=== PATIENT | female | born 1940 | race Caucasian/White ===

== ENCOUNTER 2023-10-07 19:31 | Observation (INO) ==
[2023-10-07 22:27] LABS: ABS Basophils 0.1 10^3/uL (0.0-0.1); ABS Eosinophils 0.1 10^3/uL (0.0-0.5); ABS Lymphocytes 1.6 10^3/uL (1.0-4.8); ABS Monocytes 1.1 10^3/uL (0.0-0.9); ABS Neutrophils 7.5 10^3/uL (1.5-7.6); ABS Nucleated RBC 0.01 10^3/ul; Eosinophil % 0.6 %; Hematocrit 32.6 % (35-45); Hemoglobin 11.1 g/dL (11.5-14.3); Lymphocyte % 15.1 %; Mean Corpuscular Hgb Conc 33.9 g/dL (31-36); Mean Corpuscular Volume 91.4 fL (80-97); Mean Platelet Volume 8.6 fL (7.5-11.2); Nucleated Red Blood Cells % 0.1 %/100WBC (0.0-0.8); Platelet Count 569 10^3/uL (150-450); Red Blood Count 3.57 10^6/uL (3.63-4.92); White Blood Count 10.3 10^3/uL (3.8-11.8)
[2023-10-07 22:53] LABS: Albumin 3.5 g/dL (3.2-5.2); Albumin/Globulin Ratio 0.9 (1-3); C Reactive Protein 205.77 mg/L (<8.01); Calcium 9.3 mg/dL (8.6-10.3); Creatinine, Serum 0.76 mg/dL (0.51-0.95); Globulin 3.9 g/dL (2-4); Potassium 4.6 mmol/L (3.5-5.0); Total Bilirubin 0.5 mg/dL (0.2-1.0); Total Protein 7.4 g/dL (6.4-8.9); eGFR CKD-EPI 78.7 (>60)
[2023-10-07 23:13] LABS: Activated Partial Thrombo Time 30.9 seconds (26.0-38.0); INR 1.15 (0.83-1.13)
[2023-10-07] MEDS ORDERED: Iohexol 350 (CONTRAST) 500 ML MDV IV ONE (23:26)
[2023-10-08] MEDS ORDERED: Sulfur Hexaflouride MICROSPHR 25 MG VIAL ONE (08:37)
[2023-10-08] MEDS: Benzocaine/Menthol LOZ PO PRN ×2 (09:17→21:35)
[2023-10-08 16:48] LABS: Body Fluid Appearance Cloudy; Body Fluid Color Yellow; Body Fluid Source Pleural Fluid
[2023-10-08 18:29] LABS: Body Fluid Total Nucleated 1894 /mcL
[2023-10-08 18:39] LABS: Magnesium 2.1 mg/dL (1.9-2.7)
[2023-10-08 19:14] LABS: Body Fluid Total Cells Counted 200
[2023-10-08 19:19] LABS: Body Fluid Band 1 %; Body Fluid Mono 3 %; Body Fluid Other Cells 144
[2023-10-09] MEDS: Enoxaparin 40 MG/0.4 ML SYR SUBCUT SCH ×2 (00:46→23:22)
[2023-10-09 08:38] LABS: ABS Basophils 0.1 10^3/uL (0.0-0.1); ABS Eosinophils 0.2 10^3/uL (0.0-0.5); ABS Lymphocytes 1.3 10^3/uL (1.0-4.8); ABS Monocytes 1.1 10^3/uL (0.0-0.9); ABS Neutrophils 5.4 10^3/uL (1.5-7.6); ABS Nucleated RBC 0.01 10^3/ul; Hemoglobin 10.5 g/dL (11.5-14.3); Lymphocyte % 16.4 %; Mean Corpuscular Hemoglobin 31.1 pg (27-33); Mean Corpuscular Volume 91.4 fL (80-97); Mean Platelet Volume 8.6 fL (7.5-11.2); Nucleated Red Blood Cells % 0.1 %/100WBC (0.0-0.8); Platelet Count 539 10^3/uL (150-450); Red Blood Count 3.39 10^6/uL (3.63-4.92); Red Cell Distribution Width 13.4 % (12-17); White Blood Count 8.1 10^3/uL (3.8-11.8)
[2023-10-09] MEDS: Benzocaine/Menthol LOZ PO PRN ×2 (08:53→23:23)
[2023-10-09 08:57] LABS: Calcium 8.6 mg/dL (8.6-10.3); Creatinine, Serum 0.72 mg/dL (0.51-0.95); Potassium 4.2 mmol/L (3.5-5.0); eGFR CKD-EPI 83.9 (>60)
[2023-10-10 06:53] LABS: ABS Basophils 0.1 10^3/uL (0.0-0.1); ABS Eosinophils 0.3 10^3/uL (0.0-0.5); ABS Lymphocytes 1.6 10^3/uL (1.0-4.8); ABS Monocytes 1.1 10^3/uL (0.0-0.9); ABS Neutrophils 5.2 10^3/uL (1.5-7.6); Eosinophil % 3.3 %; Hemoglobin 11.4 g/dL (11.5-14.3); Lymphocyte % 19.2 %; Mean Corpuscular Hemoglobin 30.9 pg (27-33); Mean Corpuscular Hgb Conc 33.4 g/dL (31-36); Mean Corpuscular Volume 92.5 fL (80-97); Mean Platelet Volume 8.4 fL (7.5-11.2); Platelet Count 581 10^3/uL (150-450); Red Blood Count 3.68 10^6/uL (3.63-4.92); Red Cell Distribution Width 13.2 % (12-17); White Blood Count 8.2 10^3/uL (3.8-11.8)
[2023-10-10 07:09] LABS: Calcium 8.5 mg/dL (8.6-10.3); Creatinine, Serum 0.83 mg/dL (0.51-0.95); Potassium 4.2 mmol/L (3.5-5.0); eGFR CKD-EPI 70.8 (>60)
[2023-10-10 14:01] LABS: Lactate Dehydrogenase, BF 141 U/L
[2023-10-10] MEDS: Enoxaparin 40 MG/0.4 ML SYR SUBCUT SCH (20:20)
[2023-10-10] MEDS: Benzocaine/Menthol LOZ PO PRN (20:54)
[2023-10-11 09:48] LABS: Glucose, BF 94 mg/dL
[2023-10-11 09:52] LABS: Fluid Type, Albumin PLEURAL; Fluid Type, Protein, Total PLEURAL; Total Protein, BF 3.4 g/dL
[2023-10-11] MEDS: Benzocaine/Menthol LOZ PO PRN (10:43)
[2023-10-11 11:06] LABS: LDH 311 U/L (140-271)
[2023-10-11 12:41] VITALS: BP 127/57
[2023-10-11 13:24] LABS: CRP High Sensitivity > 80.00 mg/L (<2.00)
[2023-10-14 23:32] LABS: Anaplasma phagocytophilum Negative (Negative); B. miyamotoi PCR, B Negative (Negative); Babesia divergens/MO-1 Negative (Negative); Babesia ducani Negative (Negative); Ehrlichia chaffeensis Negative (Negative); Ehrlichia ewingii/canis Negative (Negative); Ehrlichia muris eauclairensis Negative (Negative)
== END 2023-10-11 14:25 | disposition home or self-care (01) ==
LOC: ED 19:31 → EDHOLD 19:31 → SUATTDRO 10-08 04:55 → EDHOLD 10-08 10:55 → MEDTELE 10-08 12:11
PROVIDERS: ADMIT Internal Medicine; ATTEND Hospitalist

== ENCOUNTER 2023-10-17 14:05 | Inpatient (IN) ==
[~2023-10-17 14:05] MED LIST: Iodixanol 320 (CONTRAST) 100 ML SDV IV ONE
[2023-10-17 14:34] LABS: ABS Basophils 0.1 10^3/uL (0.0-0.1); ABS Eosinophils 0.2 10^3/uL (0.0-0.5); ABS Lymphocytes 2.6 10^3/uL (1.0-4.8); ABS Neutrophils 6.8 10^3/uL (1.5-7.6); ABS Nucleated RBC 0.01 10^3/ul; Eosinophil % 1.6 %; Hematocrit 36.8 % (35-45); Hemoglobin 12.5 g/dL (11.5-14.3); Lymphocyte % 24.2 %; Mean Corpuscular Hemoglobin 30.7 pg (27-33); Mean Corpuscular Hgb Conc 34.1 g/dL (31-36); Mean Corpuscular Volume 89.9 fL (80-97); Mean Platelet Volume 8.8 fL (7.5-11.2); Nucleated Red Blood Cells % 0.1 %/100WBC (0.0-0.8); Platelet Count 616 10^3/uL (150-450); Red Blood Count 4.09 10^6/uL (3.63-4.92); Red Cell Distribution Width 13.4 % (12-17); White Blood Count 10.6 10^3/uL (3.8-11.8)
[2023-10-17 14:51] LABS: Activated Partial Thrombo Time 35.3 seconds (26.0-38.0); INR 1.05 (0.83-1.13)
[2023-10-17 14:55] LABS: Albumin 3.9 g/dL (3.2-5.2); Calcium 9.4 mg/dL (8.6-10.3); HDL Cholesterol 48.3 mg/dL; Indirect Bilirubin 0.3 mg/dL (0.3-1.0); Potassium 4.4 mmol/L (3.5-5.0); Total Bilirubin 0.3 mg/dL (0.2-1.0); Total Protein 7.9 g/dL (6.4-8.9); eGFR CKD-EPI 56.6 (>60)
[2023-10-17] MEDS ORDERED: Enoxaparin 30 MG/0.3 ML SYR SUBCUT SCH (20:00)
[2023-10-17 23:27] LABS: Urine Appearance Clear; Urine Bilirubin Negative (Negative); Urine Blood Negative (Negative); Urine Color Yellow; Urine Glucose Negative (Negative); Urine Ketones Negative (Negative); Urine Nitrite Negative (Negative); Urine Protein Negative (Negative); Urine Specific Gravity 1.024 (1.002-1.030); Urine Urobilinogen Negative (Negative)
[2023-10-17 23:30] LABS: Urine Bacteria Absent (Absent); Urine Red Blood Cell Trace(0-2/hpf) (Absent); Urine Squamous Epithelial Cell Present (Absent); Urine White Blood Cell 1+(6-10/hpf) (Absent)
[2023-10-18 15:15] VITALS: BP 156/72
[2023-10-18] MEDS ORDERED: Al Hydrox/Mg Hydrox/Simet LIQ 30 ML UDC PO PRN (16:53)
== END 2023-10-18 18:25 | disposition home or self-care (01) | DRG 65 ==
LOC: ED 14:05 → EDHOLD 14:05 → SUATTDRO 16:35 → MEDTELE 17:19
PROVIDERS: ADMIT Hospitalist; ATTEND Student in an Organized Health Care Education/Training Program

== ENCOUNTER 2024-11-02 14:49 | Observation (INO) ==
[~2024-11-02 14:49] MED LIST changes: -Iodixanol 320 (CONTRAST) 100 ML SDV IV ONE; +Metoclopramide 5 MG/ML VIAL (10 mg) IV PRN; +NS 0.45% 1000 ml BAG 1,000 ML IV SCH; +Naloxone 0.4 mg VIAL 0.4 mg/ml 1 ml VIAL IV PRN; +Ondansetron 4 mg VIAL 2 MG/ML 2 ml VIAL IV PRN; +fentaNYL 100 mcg/2 ml 50 MCG/ML VIAL IV PRN
[2024-11-02] MEDS ORDERED: Vancomycin 1,000 MG VIAL ONE ×2 (15:26→19:20)
[2024-11-02] MEDS ORDERED: Lidocaine 1% w EPI 1:200,000 SDV 30 ML VIAL ONE (15:26)
[2024-11-02] MEDS: Buffered Lidocaine 1% SYRIN 1 ml INTRADERM ONE (15:27)
[2024-11-02] MEDS ORDERED: ceFAZolin 2 GM PREMIX 2 GM/50 ML BAG ONE (15:28)
[2024-11-02] MEDS ORDERED: Midazolam 2 mg/2 ml VIAL 1 mg/ml 2 ml VIAL (2 mg) ONE (15:32)
[2024-11-02] MEDS ORDERED: Phenylephrine IV 10 MG/ML 1 ml VIAL ONE (15:32)
[2024-11-02] MEDS ORDERED: Propofol 10 MG/ML 20 ML BTL ONE (15:32)
[2024-11-02] MEDS ORDERED: Rocuronium 50 mg VIAL 10 mg/ml 5 ml VIAL (50 mg) ONE (15:32)
[2024-11-02] MEDS ORDERED: Lidocaine 2% PF 5 ML VIAL ONE (15:32)
[2024-11-02] MEDS: Lactated Ringers 1000 ml BAG 1,000 ML IV SCH ×2 (15:57→22:43)
[2024-11-02] MEDS: Scopolamine 1 mg/72hr PATCH TRANSDERM ONE (15:57)
[2024-11-02] MEDS ORDERED: Ondansetron 4 mg VIAL 2 MG/ML 2 ml VIAL ONE (17:40)
[2024-11-02] MEDS ORDERED: Dexamethasone IV 4 MG/ML VIAL 1 ml VIAL ONE (17:40)
[2024-11-02] MEDS ORDERED: fentaNYL 100 mcg/2 ml 50 MCG/ML VIAL ONE (18:51)
[2024-11-02] MEDS ORDERED: Magnesium Hydroxide LIQ 30 ML UDC PO PRN (20:05)
[2024-11-02] MEDS ORDERED: Ondansetron ODT 4 mg TAB 4 MG TAB PO PRN (20:05)
[2024-11-02] MEDS ORDERED: Morphine 2 MG/ML SYRINGE IV PRN (20:05)
[2024-11-02] MEDS ORDERED: Lactulose 30 ml UDC PO PRN (20:05)
[2024-11-02] MEDS ORDERED: Ondansetron 4 mg VIAL 2 MG/ML 2 ml VIAL IV PRN (20:05)
[2024-11-02] MEDS ORDERED: Prochlorperazine 5 mg/ml 2 ml VIAL (10 mg) IV PRN (20:15)
[2024-11-02] MEDS ORDERED: Scopolamine 1 mg/72hr PATCH TRANSDERM PRN (20:15)
[2024-11-02 20:54] LABS: Rapid COVID-19 Molecular Undetected (Undetected)
[2024-11-02] MEDS ORDERED: Lactated Ringers 1000 ml BAG 1,000 ML IV SCH (21:00)
[2024-11-02] MEDS ORDERED: ceFAZolin 1 GM ADVAN 2 GM in NS 0.9% 50 ML 50 ML IVPB SCH (21:00)
[2024-11-02] MEDS: Acetaminophen IV 1 GM/100ML 1,000 MG/100 ML BAG IV ONE (22:25)
[2024-11-02] MEDS: Magnesium Hydroxide LIQ 30 ML UDC PO SCH (22:37)
[2024-11-03] MEDS: ceFAZolin 2 GM PREMIX 2 GM/50 ML BAG IV SCH (00:31)
[2024-11-03] MEDS: Dextran 70/Hypromellose Tears Eye Drops 15 ml BTL (for Artificials Tears) BOTH EYES PRN (00:59)
[2024-11-03 06:12] LABS: Hemoglobin 11.3 g/dL (11.5-14.3); Mean Platelet Volume 9.1 fL (7.5-11.2); Platelet Count 296 10^3/uL (150-450)
[2024-11-03 06:45] LABS: Calcium 9.2 mg/dL (8.6-10.3); Creatinine, Serum 0.82 mg/dL (0.51-0.95); Potassium 4.9 mmol/L (3.5-5.0); eGFR CKD-EPI 71.4 (>60)
[2024-11-03] MEDS: Vitamin THERAPEUTIC TAB PO SCH (09:35)
[2024-11-03 14:31] VITALS: BP 125/65
== END 2024-11-03 18:00 | disposition home or self-care (01) ==
LOC: OR 14:49 → SSU 21:27 → INTOOBSV 21:27
PROVIDERS: ADMIT Orthopaedic Surgery; ATTEND Orthopaedic Surgery